=== PATIENT | female | born 1995 | race Caucasian/White ===

== ENCOUNTER 2020-04-11 10:11 | Emergency (ER) | payer OTHER, SELFPAY ==
[2020-04-11 10:15] VITALS: BP 161/85; PULSE 102; RESP 16; TEMP 36.9; O2SAT 97; BMI 23.0
--- NOTE | 2020-04-11 10:16 | ED_ITS ---
HPI - General Adult General Chief complaint: Dental/Oral Stated complaint: tooth pain,bleeding gums Time Seen by Provider: 04/11/20 10:16 Source: patient Mode of arrival: Ambulatory Limitations: no limitations History of Present Illness HPI narrative: 25-year-old female here for evaluation of left upper mouth/face/tooth pain. Patient states that symptoms started last Friday when she was accidentally kicked in the side of the head by her child. Has had pain in this area since then. She does have an appointment with her dentist tomorrow afternoon. Has been taking Tylenol and ibuprofen at home which he states only providing minimal relief. States the pain is radiating to the front of her face and also to her left tenriism. No problems swallowing. No problems breathing. Related Data Home Medications Medication Instructions Recorded Confirmed albuterol sulfate 1 inh INHALATION QID PRN 04/11/20 04/11/20 prednisone 20 mg PO PRN PRN 04/11/20 04/11/20 Previous Rx's Medication Instructions Recorded tramadol [Ultram] 50 mg PO Q6H PRN #7 tab 04/11/20 Allergies Allergy/AdvReac Type Severity Reaction Status Date / Time hydromorphone AdvReac Vomiting Verified 04/11/20 10:20 Review of Systems Constitutional Constitutional: Denies fever(s) and Reports headache(s) ENT Ears, Nose, Mouth, and Throat: Reports dental pain, Denies vertigo, Reports facial pain (Left side), Reports headache(s), Denies sore throat and Denies throat swelling Cardiovascular Cardiovascular: Denies dyspnea Respiratory Respiratory: Denies dyspnea Integumentary/Breasts Skin/Breast: Denies rash Neurologic Neurologic: Denies behavioral changes, Denies vertigo and Reports headache(s) Psychiatric Psychiatric: Denies behavioral changes Allergic/Immunologic Allergic/Immunologic: Denies throat swelling Patient History Medical History Healthy adult (Acute) Social History Smoking Status: Never smoker Exam Initial Vital Signs Initial Vital Signs: Vital Signs Temperature 98.4 F 04/11/20 10:15 Pulse Rate 102 H 04/11/20 10:15 Respiratory Rate 16 04/11/20 10:15 Blood Pressure 161/85 H 04/11/20 10:15 Pulse Oximetry 97 04/11/20 10:15 Const General: cooperative and healthy appearing HENMT Ears: TM's normal bilaterally Nose: external nose normal Face and sinus: normal facial exam Mouth: oral mucosae normal, lip normal, tongue normal and moist mucous membranes Teeth and gingiva: gingiva normal, caries, fair dentition and other (Left upper 2nd molar pain to percussion) Throat: posterior oropharynx normal and uvula midline Neck Lymphatic: No lymphadenopathy Skin Lesions: no lesions Rashes: no rashes Extrem General: capillary refill normal Course Vital Signs Vital signs: Vital Signs - 8 hr 04/11/20 10:15 Temperature 98.4 F Pulse Rate 102 H Respiratory Rate 16 Blood Pressure 161/85 H Pulse Oximetry 97 Medical Decision Making [facility] Narrative Medical decision making narrative: I do have low suspicion for an infection given her presentation. I have more suspicion that she has potentially damaged her left posterior 2nd molar. Patient is here for symptom control. Offered her an injection but she declined. Will send home with a prescription for Ultram. She has a follow-up with her dentist tomorrow. We will hold on any antibiotics. She was given return precautions. She expressed understanding and agreement. Discharge Plan Departure Patient Disposition: Home Clinical Impression: Pain, dental Instructions: DI for Dental Pain Activity Restrictions/Additional Instructions: I do recommend that you keep your appointment with your dentist tomorrow. Take the medication as directed. No driving while taking the medication. Contact her primary provider for follow-up. Prescriptions: New tramadol [Ultram] 50 mg tablet 50 mg PO Q6H PRN (Reason: pain) Qty: 7 RF: 0 No Action prednisone 20 mg Tablet 20 mg PO PRN PRN (Reason: Shortness Of Breath Or Wheezing) RF: 0 albuterol sulfate 90 mcg/actuation Hfa Aerosol Inhaler 1 inh INHALATION QID PRN (Reason: Shortness Of Breath) RF: 0 Stand Alone Forms: Work Release Note
== END 2020-04-11 10:35 | disposition home or self-care (01) ==
PROVIDERS: Emergency Provider Emergency Medicine
DX: K08.89 Other specified disorders of teeth and supporting structures (principal)
CPT/HCPCS: 99281

== ENCOUNTER 2020-07-21 12:05 | Emergency (ER) | payer OTHER, SELFPAY ==
--- NOTE | 2020-07-21 12:29 | ED_ITS ---
HPI - General Adult <HUNG Tompkins-BC - Last Filed: 07/21/20 14:44> General Chief complaint: Blood/Body fluid exposure Stated complaint: exposure to bodily fluids at work, cut from [employer]. Time Seen by Provider: 07/21/20 12:10 Source: patient Mode of arrival: Ambulatory Limitations: no limitations History of Present Illness HPI narrative: The patient is a 25-year-old female nonsmoker who denies pertinent medical history does have history of dental pain who presents with a chief complaint of a exposure to bodily fluids at work yesterday. 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 This was to her left thumb. She is up-to-date on hepatitis-B vaccination having completed her 3 shot series. She does not know when her pr evious tetanus shot was. She does not know who she was exposed to, though does note that she is working with [employer] and there regarding the case number regarding the source patient. She immediately washed out the cut with soap and water. Related Data Home Medications Medication Instructions Recorded Confirmed albuterol sulfate 1 inh INHALATION QID PRN 04/11/20 04/11/20 prednisone 20 mg PO PRN PRN 04/11/20 04/11/20 Previous Rx's Medication Instructions Recorded tramadol [Ultram] 50 mg PO Q6H PRN #7 tab 04/11/20 Allergies Allergy/AdvReac Type Severity Reaction Status Date / Time hydromorphone AdvReac Vomiting Verified 04/11/20 10:20 Review of Systems <SALMA Tompkins - Last Filed: 07/21/20 14:44> Review of Systems Narrative: GENERAL: Denies chills, fatigue, malaise, fever, sweats. HEENT: Denies sinus pain, ear pain, sore throat, difficulty swallowing, dizziness. RESPIRATORY: Denies dyspnea, cough, wheezing, hemoptysis, sputum. CARDIOVASCULAR: Denies chest pain, palpitations, orthopnea, edema, GASTROINTESTINAL: Denies nausea, vomiting, abdominal pain, diarrhea, constipation, melena. : Denies dysuria, frequency, incontinence, hematuria, urinary retention. MUSCULOSKELETAL: denies weakness, joint pain, or bony pain SKIN: See HPI NEUROLOGIC: Denies weakness, headache, numbness, change in speech, confusion, seizures, incoordination. PSYCHIATRIC: No concerning psychosocial issues. 12 point review of systems is negative except for those stated above Patient History <ANABEL Tompkins - Last Filed: 07/21/20 14:44> Medical History (Updated 07/21/20 @ 13:38 by ANABEL Tompkins) Healthy adult (Acute) Social History Smoking Status: Never smoker Smoking Status: Never smoker alcohol intake frequency: holidays/special occasions only Exam <ANABEL Tompkins - Last Filed: 07/21/20 14:44> Narrative Exam Narrative: GENERAL: This is a well-nourished, well-developed patient, in no acute distress HEAD: Atraumatic. Normocephalic. No temporal or scalp tenderness. EYES: Pupils equal round and reactive. Extraocular motions intact. No scleral icterus. No injection or drainage. ENT: Nose without bleeding, purulent drainage or septal hematoma. Wearing a mask. . Airway patent. NECK: Trachea midline. No JVD or lymphadenopathy. Supple, nontender, no meningeal signs. CARDIOVASCULAR: Regular rate and rhythm RESPIRATORY: No cough. No increased respiratory effort. No accessory muscle use. Speaking full sentences. BACK: Nontender without deformity or crepitance. No flank tenderness. NEURO: AOx3. SKIN: Healing puncture jc noted on left thumb Initial Vital Signs Initial Vital Signs: Vital Signs Temperature 97.5 F L 07/21/20 12:33 Pulse Rate 78 07/21/20 12:33 Respiratory Rate 16 07/21/20 12:33 Blood Pressure 127/72 07/21/20 12:33 Pulse Oximetry 98 07/21/20 12:33 <Alessandra De La Cruz MD - Last Filed: 07/21/20 17:45> Initial Vital Signs Initial Vital Signs: Vital Signs Temperature 97.5 F L 07/21/20 12:33 Pulse Rate 78 07/21/20 12:33 Respiratory Rate 16 07/21/20 12:33 Blood Pressure 127/72 07/21/20 12:33 Pulse Oximetry 98 07/21/20 12:33 Scores <ANABEL Tompkins - Last Filed: 07/21/20 14:44> GCS [place] coma scale eye opening: Spontaneous [place] coma scale verbal response: Orientated Donna coma scale motor response: Obey commands Donna coma scale total score: 15 Course <ANABEL Tompkins - Last Filed: 07/21/20 14:44> Orders Ordered: ED Orders 07/21/20 13:06 Alanine Aminotransferase Stat HIV 1 & 2 Ab/Ag 4th Gen Combo Stat Hep C Virus Ab w/Reflex Quant Stat Discontinued Medications Diphtheria/Tetanus/Acell Pertussis (Adacel) 0.5 ml IM .ONCE ONE Stop: 07/21/20 12:19 Last Admin: 07/21/20 12:56 Dose: 0.5 ml Documented by: RSTONE Vital Signs Vital signs: Vital Signs - 8 hr 07/21/20 12:33 Temperature 97.5 F L Pulse Rate 78 Respiratory Rate 16 Blood Pressure 127/72 Pulse Oximetry 98 <Alessandra De La Cruz MD - Last Filed: 07/21/20 17:45> Orders Ordered: ED Orders 07/21/20 13:06 Alanine Aminotransferase Stat HIV 1 & 2 Ab/Ag 4th Gen Combo Stat Hep C Virus Ab w/Reflex Quant Stat Discontinued Medications Diphtheria/Tetanus/Acell Pertussis (Adacel) 0.5 ml IM .ONCE ONE Stop: 07/21/20 12:19 Last Admin: 07/21/20 12:56 Dose: 0.5 ml Documented by: RSTONE Vital Signs Vital signs: Vital Signs - 8 hr 07/21/20 12:33 Temperature 97.5 F L Pulse Rate 78 Respiratory Rate 16 Blood Pressure 127/72 Pulse Oximetry 98 Medical Decision Making <ANABEL Tompkins - Last Filed: 07/21/20 14:44> Lab Data Labs: Lab Results 07/21/20 07/21/20 Range/Units 13:06 13:06 ALT 14 (<35) IU/L Hepatitis C Antibody Negative (NEGATIVE) s/c HIV 1&2 Ab/P24 Ag 4thGn Negative (NEGATIVE) MDM Narrative Medical decision making narrative: The patient is a 25-year-old female who pr esents with a chief complaint of a needlestick injury yesterday. [facility] protocol was followed, patient was updated on tetanus. She has received her entire hepatitis-B vaccination series so she declines at vaccination. She does consent to HIV testing. She declines post exposure prophylaxis for HIV, stating understand increased risk for a disease exposure. I discussed at length importance of following up with her primary care provider as well as Employee Health as they are working to get consent from the source patient for testing. Discussed coming back to the ER for acute concerns. Patient has no questions or concerns upon discharge and states understanding of return precautions as well as follow-up care. <Alessandra De La Cruz MD - Last Filed: 07/21/20 17:45> Lab Data Labs: Lab Results 07/21/20 07/21/20 Range/Units 13:06 13:06 ALT 14 (<35) IU/L Hepatitis C Antibody Negative (NEGATIVE) s/c HIV 1&2 Ab/P24 Ag 4thGn Negative (NEGATIVE) Discharge Plan Departure Patient Disposition: Home Clinical Impression: Exposure to blood or body fluid Discharge Date/Time: 07/21/20 13:45 Instructions: DI for Accidental Exposure to Body Fluids Activity Restrictions/Additional Instructions: Thank you for trusting us with your care today. As discussed, please follow-up with employee health regarding future lab work and the source patient. Please follow-up with primary care provider as well. I have given contact information to the [facility] health human resources manager manufacturing. Please come back to the emergency department for any acute concerns Prescriptions: No Action prednisone 20 mg Tablet 20 mg PO PRN PRN (Reason: Shortness Of Breath Or Wheezing) RF: 0 albuterol sulfate 90 mcg/actuation Hfa Aerosol Inhaler 1 inh INHALATION QID PRN (Reason: Shortness Of Breath) RF: 0 tramadol [Ultram] 50 mg tablet 50 mg PO Q6H PRN (Reason: pain) Qty: 7 RF: 0 Referrals: Located Within [facility] [Outside] <Alessandra De La Cruz MD - Last Filed: 07/21/20 17:45> Cosign ED Attending Cosignature Attestation: I was immediately available in the department for consultation throughout this patient's visit. I agree with documentation as above. Alessandra De La Cruz MD
[2020-07-21 12:33] VITALS: BP 127/72; PULSE 78; RESP 16; TEMP 36.4; O2SAT 98; BMI 23.0
[2020-07-21] MEDS: TET,DIPH,PERTUSS(ACELL),VAC/PF 0.5 ML SYRINGE IM (12:56)
[2020-07-21 13:24] LABS: Alanine Aminotransferase 14 IU/L (<35)
[2020-07-21 15:38] LABS: HIV 1 & 2 Ab/Ag 4th Gen Combo NEGATIVE (NEGATIVE); Hep C Virus Ab w/Reflex Quant NEGATIVE s/c (NEGATIVE)
[2020-07-22 07:50] LABS: Hepatitis B Surf Ab Qualitativ Non Reactive (.)
== END 2020-07-21 13:45 | disposition home or self-care (01) ==
PROVIDERS: Emergency Provider Nurse Practitioner Family
DX: S61.032A Puncture wound without foreign body of left thumb without damage to nail, initial encounter (principal); Z77.21 Contact with and (suspected) exposure to potentially hazardous body fluids
CPT/HCPCS: 36415; 84460; 86706; 86803; 87389; 90471; 99283; 90715